=== PATIENT | female | born 1990 | race American Indian/Alaskan Native ===

== ENCOUNTER 2016-03-10 07:52 | Emergency (ER) | payer MEDICAID ==
--- NOTE | 2016-03-10 12:05 | Emergency Department Report ---
HPI - General Chief Complaint: Medical Clearance Time Seen by Provider: 03/10/16 11:34 - HPI HPI: Patient 25-year-old female presents with her mother complaining of feeling of tasting blood in her mouth. Patient states yesterday she started having taste of blood in her mouth. Patient states that she was spaghetti and meatballs and prior to that [employer] restaurant. Patient states this never happened before. Patient states a history of nose bleeds. Patient states no recent nosebleed. Patient denies fevers/chills/nausea/vomiting/dizziness/headache/blurred vision/ or any other problems ED Past Medical Hx - Past Medical History Hx Arthritis: Yes Additional medical history: gastric ulcers. gallstones. rickets - Surgical History Additional Surgical History: R eye surgery - Social History Smoking Status: Never Smoker Substance Use Type: None - Medications Home Medications: Home Medications Medication Instructions Recorded Confirmed Last Taken Type No Known Home Medications [No 03/10/16 03/10/16 Unknown History Reported Home Medications] ED Review of Systems ROS: Stated complaint: TASTE OF BLOOD IN MOUTH Other details as noted in HPI Constitutional: denies: chills, fever Eyes: denies: eye pain, eye discharge, vision change ENT: denies: ear pain, throat pain, hearing loss, epistaxis, congestion Respiratory: denies: cough, shortness of breath, SOB at rest, wheezing Cardiovascular: denies: chest pain, palpitations Endocrine: no symptoms reported Gastrointestinal: denies: abdominal pain, nausea, diarrhea, constipation, hematemesis Genitourinary: denies: urgency, dysuria, frequency, hematuria, discharge Musculoskeletal: denies: back pain, joint swelling, arthralgia Skin: denies: rash, lesions Neurological: denies: headache, weakness, paresthesias Psychiatric: denies: anxiety, depression, auditory hallucinations, suicidal thoughts Hematological/Lymphatic: denies: easy bleeding, easy bruising Physical Exam - Physical Exam Vital Signs: Vital Signs 03/10/16 08:03 Temperature 98 F Pulse Rate 66 Blood Pressure 134/81 O2 Sat by Pulse 100 Oximetry Physical Exam: GENERAL: Alert and oriented x3, no apparent distress, Normal Gait, atraumatic. HEAD: Head is normocephalic and a-traumatic. EYES: Extra ocular muscles are intact. Pupils are equal, round, and reactive to light and accommodation. EARS: symetrical, atraumatic, non tender, ear canal clear and moderate cerumen, tympanic membrance non inflamed. gross auditory nml bilaterally. NOSE: Nose symetrical, Nontender,Nares appeared normal. MOUTH:Mouth is well hydrated and without lesions. Tonsils nonerythematous or swollen, Uvula midline, Tongue not elevated. Mucous membranes are moist. Posterior pharynx clear, no exudate or lesions. Patent airways. NECK: Supple. Non edematous, No carotid bruits. No lymphadenopathy or thyromegaly. LUNGS: Symetrical with respiration, No wheezing, no rales or crackles, CTAB. HEART: S1, S2 present, regular rate and rhythm without murmur, no rubs, no gallops. ABDOMEN: No organomegaly was noted,Positive bowel sounds, soft, and non- distended. . Nontender to palpation on all Quadrants, NO CVA tenderness. EXTREMITIES/MUSCULOSKELETAL: No cyanosis, clubbing, rash, lesions or edema. Full ROM bilaterally. UE/LE Pulses 2+ bilaterally. LE and UE 5+ strength bilaterally NEUROLOGIC: No focal Deficit, Cranial nerves II through XII are grossly intact. No loss of sensation, No facial droop PSYCHIATRIC: Mood is congruent with affect, denies suicidal or homicidal ideations. SKIN: Warm and dry, No lesions, No ulceration or induration present. ED Course Vital Signs 03/10/16 08:03 Temperature 98 F Pulse Rate 66 Blood Pressure 134/81 O2 Sat by Pulse 100 Oximetry ED Medical Decision Making - Medical Decision Making Patient presents for bloody taste in mouth. Patient asked how she knows what blood taste like. Patient states she remembers as a child when she had a code and would suck on the blood. Patient' s dates she can't describe the feeling on the face but it takes like blood. Discussed the patient to follow up with primary care physician as referred. Patient states she did not have a primary care physician different referrals given. Patient is alert and oriented 3 is in no respiratory or acute distress or any pain. No blood or cut or ulcerations seen in the mouth. Discussed mouthwash twice a day. Discussed eating to get taste out of mouth. Discussed daily multivitamin intake. Critical care attestation.: If time is entered above; I have spent that time in minutes in the direct care of this critically ill patient, excluding procedure time. ED Disposition Clinical Impression: Bad taste in mouth, Bloody taste in mouth Disposition: DISCHARGED TO HOME OR SELFCARE Is pt being admited?: No Does the pt Need Aspirin: No Condition: Stable Instructions: Multivitamins, Adult Formula (By mouth) Additional Instructions: Clean mouth twice a day. Use Listerine mouthwash as directed. Follow-up with primary care physician is referred Referrals: PRIMARY CARE, [Primary Care Provider] - 3-5 Days [facility] [Outside] - 3-5 Days [facility] [Outside] - 3-5 Days [facility] [Outside] - 3-5 Days [facility] [Outside] - 3-5 Days [facility] [Outside] - 3-5 Days Forms: Accompanied Note, Work/School Release Form(ED) Time of Disposition: 12:46
[2016-03-10 13:02] VITALS: BP 130/75
== END 2016-03-10 13:03 | disposition home or self-care (01) ==
LOC: ED 07:52
DX: R43.9 Unspecified disturbances of smell and taste (principal); M19.90 Unspecified osteoarthritis, unspecified site
CPT/HCPCS: 99281

== ENCOUNTER 2019-01-13 11:17 | Emergency (ER) | payer MEDICAID ==
[2019-01-13] MEDS ORDERED: ONDANSETRON 4 MG/2 ML INJ IM ONE (11:55)
[2019-01-13] MEDS ORDERED: MORPHINE 4 MG/1 ML INJ IV ONE (11:55)
[2019-01-13] MEDS ORDERED: MECLIZINE 25 MG TAB PO ONE (13:18)
[2019-01-13] MEDS ORDERED: diphenhydrAMINE 50 MG/ML VIAL IV ONE (13:18)
[2019-01-13] MEDS ORDERED: SODIUM CHLORIDE 0.9% 1000 ML 1,000 ML IV ONE (13:20)
[2019-01-13 13:53] LABS: Basophils % (Auto) 0.5 % (0.0-1.8); Eosinophils % (Auto) 0.2 % (0.0-4.3); Hematocrit 42.3 % (30.3-42.9); Lymphocytes # (Auto) 1.3 K/mm3 (1.2-5.4); Mean Corpuscular HGB Conc 33 % (30-34); Mean Corpuscular Volume 90 fl (79-97); Monocytes # (Auto) 0.3 K/mm3 (0.0-0.8); Monocytes % (Auto) 4.2 % (0.0-7.3); Platelet Count 219 K/mm3 (140-440); Red Blood Count 4.69 M/mm3 (3.65-5.03); Red Cell Distribution Width 14.3 % (13.2-15.2)
[2019-01-13 14:15] LABS: Alanine Aminotransferase 30 units/L (7-56); Albumin 4.3 g/dL (3.9-5); BUN/Creatinine Ratio 18; Blood Urea Nitrogen 9 mg/dL (7-17); Hemolysis Index 17
--- NOTE | 2019-01-13 14:52 | Emergency Department Report ---
ED General Adult HPI - General Chief complaint: Chest Pain Stated complaint: CHEST PAIN/NAUSEA Time Seen by Provider: 01/13/19 11:47 Source: patient Mode of arrival: Ambulatory Limitations: No Limitations - History of Present Illness Initial comments: The patient presents to the emergency department for chief complaint of nausea and vomiting with dizziness and started upon awakening this morning. Patient states any movement of her head or eyes quickly causes her to have dizziness with vomiting. Patient says she's had over 12 episodes of vomiting which has caused some burning in her chest. Patient denies any luís chest pain, more pain, or shortness of breath. Patient denies any recent travel via airplane or changes in altitude. She states that she's had the symptoms once before which was greater than 5 years ago. Severity scale (0 -10): 0 Consistency: constant Improves with: none Worsens with: none Associated Symptoms: denies other symptoms Treatments Prior to Arrival: none - Related Data Previous Rx's Medication Instructions Recorded Last Taken Type Meclizine [Antivert] 25 mg PO TID PRN #30 tablet 01/13/19 Unknown Rx Ondansetron [Zofran Odt] 4 mg PO Q4HR PRN #20 tab.rapdis 01/13/19 Unknown Rx Allergies Allergy/AdvReac Type Severity Reaction Status Date / Time Penicillins Allergy Shortness Verified 04/25/15 10:03 of Breath ED Review of Systems ROS: Stated complaint: CHEST PAIN/NAUSEA Other details as noted in HPI Comment: All other systems reviewed and negative Constitutional: denies: chills, fever Eyes: denies: eye pain, eye discharge, vision change ENT: denies: ear pain, throat pain Respiratory: denies: cough, shortness of breath, wheezing Cardiovascular: denies: chest pain, palpitations Endocrine: no symptoms reported Gastrointestinal: vomiting. denies: abdominal pain, nausea, diarrhea Genitourinary: denies: urgency, dysuria, discharge Musculoskeletal: denies: back pain, joint swelling, arthralgia Skin: denies: rash, lesions Neurological: vertigo. denies: headache, weakness, paresthesias Psychiatric: denies: anxiety, depression Hematological/Lymphatic: denies: easy bleeding, easy bruising ED Past Medical Hx - Past Medical History Previous Medical History?: Yes Hx Arthritis: Yes Additional medical history: gastric ulcers. gallstones. rickets - Surgical History Past Surgical History?: Yes Additional Surgical History: R eye surgery - Social History Smoking Status: Never Smoker Substance Use Type: None - Medications Home Medications: Home Medications Medication Instructions Recorded Confirmed Last Taken Type Meclizine [Antivert] 25 mg PO TID PRN #30 tablet 01/13/19 Unknown Rx Ondansetron [Zofran Odt] 4 mg PO Q4HR PRN #20 tab.rapdis 01/13/19 Unknown Rx ED Physical Exam - General Limitations: No Limitations General appearance: alert, in no apparent distress - Head Head exam: Present: atraumatic, normocephalic - Eye Eye exam: Present: normal appearance, PERRL, EOMI - ENT ENT exam: Present: mucous membranes moist, other (fluid behind the left tympanic membrane) - Neck Neck exam: Present: normal inspection - Respiratory Respiratory exam: Present: normal lung sounds bilaterally. Absent: respiratory distress - Cardiovascular Cardiovascular Exam: Present: regular rate, normal rhythm. Absent: systolic murmur, diastolic murmur, rubs, gallop - GI/Abdominal GI/Abdominal exam: Present: soft, normal bowel sounds - Extremities Exam Extremities exam: Present: normal inspection - Back Exam Back exam: Present: normal inspection - Neurological Exam Neurological exam: Present: alert, oriented X3, CN II-XII intact, other (finger- nose, [id number], rapid hand movement on intact; O2 re-creates symptoms rapid eye and head movement). Absent: motor sensory deficit - Psychiatric Psychiatric exam: Present: normal affect, normal mood - Skin Skin exam: Present: warm, dry, intact, normal color. Absent: rash ED Course Vital Signs 01/13/19 01/13/19 01/13/19 11:38 11:45 11:47 Temperature 97.7 F Pulse Rate 68 55 L 57 L Respiratory 17 7 L 18 Rate Blood Pressure 143/92 Blood Pressure 148/92 [Left] O2 Sat by Pulse 96 99 Oximetry 01/13/19 01/13/19 01/13/19 12:00 12:16 12:30 Temperature Pulse Rate 54 L 64 57 L Respiratory 18 15 16 Rate Blood Pressure 143/92 156/93 136/88 Blood Pressure [Left] O2 Sat by Pulse 96 96 94 Oximetry 01/13/19 01/13/19 01/13/19 12:46 13:00 14:02 Temperature Pulse Rate 58 L 56 L 64 Respiratory 12 17 12 Rate Blood Pressure 127/83 134/74 Blood Pressure [Left] O2 Sat by Pulse 95 97 97 Oximetry ED Medical Decision Making - Lab Data Result diagrams: 01/13/19 13:22 01/13/19 13:22 Lab Results 01/13/19 01/13/19 Range/Units 13:22 13:22 WBC 6.1 (4.5-11.0) K/mm3 RBC 4.69 (3.65-5.03) M/mm3 Hgb 14.0 (10.1-14.3) gm/dl Hct 42.3 (30.3-42.9) % MCV 90 (79-97) fl MCH 30 (28-32) pg MCHC 33 (30-34) % RDW 14.3 (13.2-15.2) % Plt Count 219 (140-440) K/mm3 Lymph % (Auto) 21.0 (13.4-35.0) % Holt % (Auto) 4.2 (0.0-7.3) % Eos % (Auto) 0.2 (0.0-4.3) % Baso % (Auto) 0.5 (0.0-1.8) % Lymph # 1.3 (1.2-5.4) K/mm3 Holt # 0.3 (0.0-0.8) K/mm3 Eos # 0.0 (0.0-0.4) K/mm3 Baso # 0.0 (0.0-0.1) K/mm3 Seg Neutrophils % 74.1 H (40.0-70.0) % Seg Neutrophils # 4.5 (1.8-7.7) K/mm3 Sodium 140 (137-145) mmol/L Potassium 4.1 (3.6-5.0) mmol/L Chloride 104.5 (98-107) mmol/L Carbon Dioxide 23 (22-30) mmol/L Anion Gap 17 mmol/L BUN 9 (7-17) mg/dL Creatinine 0.5 L (0.7-1.2) mg/dL Estimated GFR > 60 ml/min BUN/Creatinine Ratio 18 % Glucose 98 (65-100) mg/dL Calcium 9.0 (8.4-10.2) mg/dL Total Bilirubin 0.30 (0.1-1.2) mg/dL AST 20 (5-40) units/L ALT 30 (7-56) units/L Alkaline Phosphatase 106 (35-129) units/L Total Protein 7.5 (6.3-8.2) g/dL Albumin 4.3 (3.9-5) g/dL Albumin/Globulin Ratio 1.3 % - Medical Decision Making Patient's symptoms improved with medications Critical care attestation.: If time is entered above; I have spent that time in minutes in the direct care of this critically ill patient, excluding procedure time. ED Disposition Clinical Impression: Vertigo Disposition: DC-01 TO HOME OR SELFCARE Is pt being admited?: No Does the pt Need Aspirin: No Condition: Stable Instructions: Vertigo (ED) Additional Instructions: return if worse Prescriptions: Meclizine [Antivert] 25 mg PO TID PRN #30 tablet PRN Reason: Vertigo Ondansetron [Zofran Odt] 4 mg PO Q4HR PRN #20 tab.rapdis PRN Reason: Nausea Referrals: JOHN HEALY MD [Primary Care Provider] - 3-5 Days [facility] [Provider Group] - 3-5 Days [facility] [Provider Group] - 3-5 Days Time of Disposition: 15:05
[2019-01-13 15:32] VITALS: BP 132/82
== END 2019-01-13 15:32 | disposition home or self-care (01) ==
LOC: ED 11:17
DX: R42 Dizziness and giddiness (principal); R11.2 Nausea with vomiting, unspecified; R07.89 Other chest pain; M19.90 Unspecified osteoarthritis, unspecified site; Z88.0 Allergy status to penicillin; Z79.899 Other long term (current) drug therapy
CPT/HCPCS: 36415; 80053; 85025; 93005; 93010; 96361; 96372; 96374; 96375; 99283; J1200; J2270; J2405; J7030